=== PATIENT | male | born 1960 | race Hispanic/Latino ===

== ENCOUNTER 2018-02-14 22:48 | Emergency (ER) | payer MEDICAID ==
[2018-02-14] MEDS ORDERED: ASPIRIN PO ONE (23:12)
[2018-02-14 23:32] LABS: Basophils # (Auto) 0.1 K/mm3 (0.0-0.1); Basophils % (Auto) 0.6 % (0.0-1.8); Eosinophils % (Auto) 0.4 % (0.0-4.3); Hematocrit 36.1 % (35.5-45.6); Hemoglobin 12.4 gm/dl (11.8-15.2); Lymphocytes # (Auto) 3.3 K/mm3 (1.2-5.4); Mean Corpuscular HGB Conc 34 % (32-34); Mean Corpuscular Hemoglobin 30 pg (28-32); Mean Corpuscular Volume 88 fl (84-94); Monocytes # (Auto) 0.6 K/mm3 (0.0-0.8); Monocytes % (Auto) 7.7 % (0.0-7.3); Platelet Count 206 K/mm3 (140-440); Red Blood Count 4.09 M/mm3 (3.65-5.03); Red Cell Distribution Width 15.1 % (13.2-15.2)
[2018-02-14 23:42] LABS: INR 0.93 (0.87-1.13)
[2018-02-14 23:46] LABS: BUN/Creatinine Ratio 19; Blood Urea Nitrogen 15 mg/dL (9-20); Calcium 8.8 mg/dL (8.4-10.2); Hemolysis Index 4
[2018-02-14] MEDS ORDERED: ULTRAM PO ONE (23:50)
--- NOTE | 2018-02-15 00:55 | Emergency Department Report ---
ED Chest Pain HPI - General Chief Complaint: Chest Pain Stated Complaint: CHEST PAIN Time Seen by Provider: 02/14/18 23:02 Source: patient, EMS Mode of arrival: Stretcher Limitations: No Limitations, Other - History of Present Illness Initial Comments: 57-year-old male with a past medical history of CHF, COPD, CVA, CAD, HIV, psychiatric treatment, and atrial fibrillation presents to the Hospital complaining of anterior chest pain started 30 minutes prior to arrival. Pain is stabbing, intermittent, worse with palpation and movement. Shortness of breath reported without nausea, vomiting, or diaphoresis. Patient has a dry cough without reports of fever. Patient was just admitted to [facility] [place] today after discharge from the [facility] and [facility]. Patient states he had a negative cardiac cath about 10 days ago and states he was told his arteries were "clear". Prior to that he had had a cardiac cath 1 year ago showing 25% and 40% Blockage of 2 Arteries. He Denies Ever Receiving Stenting or Bypass Surgery. Patient is on Eliquis for atrial fibrillation but has not taken the medication 7-8 days in preparation for scheduled endoscopy tomorrow as per patient. Patient presents from [facility] without any allergy list, medication list, medical records, and they know very little about the patient. We're attempting to obtain recent medical records from the [facility] and [facility]. Severity scale (0 -10): 7 - Related Data Previous Rx's Medication Instructions Recorded Last Taken Type traMADol [Ultram 50 MG tab] 50 mg PO Q6HR PRN #20 tablet 02/15/18 Unknown Rx Allergies Allergy/AdvReac Type Severity Reaction Status Date / Time clarithromycin Allergy Unknown Verified 02/14/18 23:50 Heart Score - HEART Score History: Slightly suspicious EKG: Normal Age: 45-65 Risk factors: > 3 risk factors or hx of atherosclerotic disease Troponin: < normal limit HEART Score: 3 ED Review of Systems ROS: Stated complaint: CHEST PAIN Other details as noted in HPI Comment: All other systems reviewed and negative ED Past Medical Hx - Past Medical History Previous Medical History?: Yes Hx Hypertension: Yes Hx CVA: Yes (Within the past yr with Speech deficits.) Hx Heart Attack/AMI: Yes (Within the past 10 yrs. Pt. unable to state when.) Hx Congestive Heart Failure: Yes Hx Psychiatric Treatment: Yes Hx COPD: Yes (CPAP at night) Hx HIV: Yes Additional medical history: sleep apnea uses a cpap at night, AFIB. negative cardiac cath peformed 01/27/18 at [facility] in [place], [place]. Cardiac cath performed on 01/27/18. Left ventricle: Systolic function normal. EF 60-65%. Wall motion normal. No regional wall abnormalities. Left main: normal. Right circumflex: Minor luminal irregularities. Right coronary: Minor luminal irregularities - Surgical History Past Surgical History?: No - Social History Smoking Status: Never Smoker Substance Use Type: None - Medications Home Medications: Home Medications Medication Instructions Recorded Confirmed Last Taken Type traMADol [Ultram 50 MG tab] 50 mg PO Q6HR PRN #20 tablet 02/15/18 Unknown Rx ED Physical Exam - General Limitations: No Limitations, Other - Other Other exam information: General: No limitations, patient is alert in no acute distress Head exam: Atraumatic, normocephalic Eyes exam: Normal appearance, pupils equal reactive to light, extraocular movements intact ENT: Moist mucous membrane, normal oropharynx Neck exam: Normal inspection, full range of motion, no meningismus nontender Respiratory exam: Clear to auscultation bilateral, no wheezes, rales, crackles, reproducible sternal and anterior chest wall tenderness Cardiovascular: Normal rate and rhythm, normal heart sounds Abdomen: Soft, nondistended, and nontender, with normal bowel sounds, no rebound, or guarding Extremity: Full range of motion normal inspection no deformity, no calf tenderness or edema Back: Normal Inspection, full range of motion, no tenderness Neurologic: Alert, oriented x3, cranial nerves intact, no motor or sensory deficit Psychiatric: normal affect, normal mood Skin: Warm, dry, intact ED Course Vital Signs 02/14/18 02/14/18 02/14/18 22:58 23:10 23:55 Temperature 98.7 F 98.7 F Pulse Rate 54 L 54 L 51 L Respiratory 17 17 18 Rate Blood Pressure 168/83 Blood Pressure 168/83 172/85 [Right] O2 Sat by Pulse 98 98 100 Oximetry 02/15/18 02/15/18 02/15/18 00:03 01:00 01:30 Temperature Pulse Rate 44 L Respiratory 20 18 14 Rate Blood Pressure Blood Pressure 151/78 [Right] O2 Sat by Pulse 99 99 Oximetry VIOLETA score - Violeta Score Age > 65: (0) No Aspirin use within the Past 7 Days: (1) Yes 3 or more CAD Risk Factors: (1) Yes 2 or more Angina events in past 24 hrs: (0) No Known CAD with more than 50% Stenosis: (0) No Elevated Cardiac Markers: (0) No ST Deviation Greater than 0.5mm: (0) No VIOLETA Score: 2 ED Medical Decision Making - Lab Data Result diagrams: 02/14/18 23:18 02/14/18 23:18 Lab Results 02/14/18 02/14/18 02/14/18 Range/Units 23:18 23:18 23:18 WBC 8.4 (4.5-11.0) K/mm3 RBC 4.09 (3.65-5.03) M/mm3 Hgb 12.4 (11.8-15.2) gm/dl Hct 36.1 (35.5-45.6) % MCV 88 (84-94) fl MCH 30 (28-32) pg MCHC 34 (32-34) % RDW 15.1 (13.2-15.2) % Plt Count 206 (140-440) K/mm3 Lymph % (Auto) 39.0 H (13.4-35.0) % Brantley % (Auto) 7.7 H (0.0-7.3) % Eos % (Auto) 0.4 (0.0-4.3) % Baso % (Auto) 0.6 (0.0-1.8) % Lymph # 3.3 (1.2-5.4) K/mm3 Brantley # 0.6 (0.0-0.8) K/mm3 Eos # 0.0 (0.0-0.4) K/mm3 Baso # 0.1 (0.0-0.1) K/mm3 Seg Neutrophils % 52.3 (40.0-70.0) % Seg Neutrophils # 4.4 (1.8-7.7) K/mm3 PT 13.0 (12.2-14.9) Sec. INR 0.93 (0.87-1.13) D-Dimer (0-234) ng/mlDDU Sodium 141 (137-145) mmol/L Potassium 3.6 (3.6-5.0) mmol/L Chloride 103.5 (98-107) mmol/L Carbon Dioxide 29 (22-30) mmol/L Anion Gap 12 mmol/L BUN 15 (9-20) mg/dL Creatinine 0.8 (0.8-1.5) mg/dL Estimated GFR > 60 ml/min BUN/Creatinine Ratio 19 % Glucose 106 H (75-100) mg/dL Calcium 8.8 (8.4-10.2) mg/dL Troponin T < 0.010 (0.00-0.029) ng/mL 02/14/18 02/15/18 Range/Units 23:18 00:39 WBC (4.5-11.0) K/mm3 RBC (3.65-5.03) M/mm3 Hgb (11.8-15.2) gm/dl Hct (35.5-45.6) % MCV (84-94) fl MCH (28-32) pg MCHC (32-34) % RDW (13.2-15.2) % Plt Count (140-440) K/mm3 Lymph % (Auto) (13.4-35.0) % Brantley % (Auto) (0.0-7.3) % Eos % (Auto) (0.0-4.3) % Baso % (Auto) (0.0-1.8) % Lymph # (1.2-5.4) K/mm3 Br[place]ley # (0.0-0.8) K/mm3 Eos # (0.0-0.4) K/mm3 Baso # (0.0-0.1) K/mm3 Seg Neutrophils % (40.0-70.0) % Seg Neutrophils # (1.8-7.7) K/mm3 PT (12.2-14.9) Sec. INR (0.87-1.13) D-Dimer 163.52 (0-234) ng/mlDDU Sodium (137-145) mmol/L Potassium (3.6-5.0) mmol/L Chloride (98-107) mmol/L Carbon Dioxide (22-30) mmol/L Anion Gap mmol/L BUN (9-20) mg/dL Creatinine (0.8-1.5) mg/dL Estimated GFR ml/min BUN/Creatinine Ratio % Glucose (75-100) mg/dL Calcium (8.4-10.2) mg/dL Troponin T < 0.010 (0.00-0.029) ng/mL - EKG Data -: EKG Interpreted by Me EKG shows normal: sinus rhythm, axis (qrs 15), QRS complexes (qrsd 118), ST-T waves (no stemi) Rate: bradycardia (52) - EKG Data When compared to previous EKG there are: no significant change (compared the EKG performed on 01/27/2018. Heart rate 54 at the time as well. Provided by [facility]) - Radiology Data Radiology results: report reviewed FINAL REPORT PROCEDURE: XR CHEST 1V AP TECHNIQUE: Chest radiograph anteroposterior view. CPT 55528 HISTORY: cp COMPARISON: No prior studies are available for comparison. FINDINGS: Heart: The heart is borderline enlarged. Mediastinum/Vessels: Normal. Lungs/Pleural space: Lungs are expanded. There are no infiltrates, effusions or pneumothoraces.. Bony thorax: No acute osseous abnormality. Life support devices: None. IMPRESSION: No acute cardiopulmonary abnormality. - Medical Decision Making Patient presenting with reproducible anterior chest wall pain which likely is musculoskeletal in origin. It is very reproducible with light palpation Chest x-ray negative, EKG without signs of ischemia, cardiac enzymes negative 2 , d-dimer negative, repeat EkG unchanged Pt received asa and tramadol in ed Previous cardiac workup obtained from [facility]. Patient had a false-positive nuclear stress test. He had a cardiac cath that that show the following: Cardiac cath performed on 01/27/18 Left ventricle: Systolic function normal. EF 60-65%. Wall motion normal. No regional wall abnormalities. Left main: normal Right circumflex: Minor luminal irregularities Right coronary: Minor luminal irregularities Recommendations was medical management and patient reassurance A copy of the report will be placed in chart - Differential Diagnosis [place], unstable angina, PE, atypical chest pain, costochondritis Critical Care Time: No Critical care attestation.: If time is entered above; I have spent that time in minutes in the direct care of this critically ill patient, excluding procedure time. ED Disposition Clinical Impression: Chest wall pain Disposition: DC-01 TO HOME OR SELFCARE Is pt being admited?: No Does the pt Need Aspirin: No Condition: Stable Instructions: Costochondritis (ED) Additional Instructions: You have been prescribed tramadol as needed for pain. Follow-up with doctor. Return if symptoms worsen as indicated by your discharge instructions. Prescriptions: traMADol [Ultram 50 MG tab] 50 mg PO Q6HR PRN #20 tablet PRN Reason: Pain Referrals: PRIMARY CARE,MD [Primary Care Provider] - 3-5 Days Time of Disposition: 02:23
--- NOTE | 2018-02-15 01:06 | XRay Report ---
FINAL REPORT PROCEDURE: XR CHEST 1V AP TECHNIQUE: Chest radiograph anteroposterior view. CPT 77417 HISTORY: cp COMPARISON: No prior studies are available for comparison. FINDINGS: Heart: The heart is borderline enlarged. Mediastinum/Vessels: Normal. Lungs/Pleural space: Lungs are expanded. There are no infiltrates, effusions or pneumothoraces.. Bony thorax: No acute osseous abnormality. Life support devices: None. IMPRESSION: No acute cardiopulmonary abnormality.
[2018-02-15 03:39] VITALS: BP 142/77
== END 2018-02-15 03:43 ==
LOC: ED 22:48
DX: R07.89 Other chest pain (principal); J44.9 Chronic obstructive pulmonary disease, unspecified; I11.0 Hypertensive heart disease with heart failure; I48.91 Unspecified atrial fibrillation; Z21 Asymptomatic human immunodeficiency virus [HIV] infection status; Z88.1 Allergy status to other antibiotic agents
CPT/HCPCS: 36415; 71045; 80048; 84484; 85025; 85379; 85610; 93005; 93010; 99285